=== PATIENT | male | born 1995 | race Caucasian/White ===

== ENCOUNTER 2016-09-16 06:19 | Emergency (ER) | payer BC ==
[~2016-09-16] VITALS: Ht 172.7 cm; Wt 58.0 kg
[~2016-09-16 06:19] MED LIST: NO HOME MEDS; ULTRAM50 M1 PO
[2016-09-16 06:30] VITALS: BP 128/88
== END 2016-09-16 06:57 | disposition home or self-care (01) | DRG 156 ==
LOC: ED 06:19
DX: H61.22 Impacted cerumen, left ear (principal); H92.02 Otalgia, left ear

== ENCOUNTER 2020-10-23 10:37 | Emergency (ER) | payer MEDICAID ==
[~2020-10-23] VITALS: Ht 172.7 cm; Wt 68.0 kg
[2020-10-23 13:12] VITALS: BP 110/70
== END 2020-10-23 13:15 | disposition home or self-care (01) | DRG 951 ==
LOC: ED 10:37
DX: Z20.822 Contact with and (suspected) exposure to COVID-19 (principal); F17.200 Nicotine dependence, unspecified, uncomplicated

== ENCOUNTER 2022-06-04 13:49 | Emergency (ER) | payer MEDICAID ==
[~2022-06-04] VITALS: Ht 172.7 cm; Wt 68.0 kg
[2022-06-04 15:05] LABS: URINE BILIRUBIN - DIPSTICK NEGATIVE (NEGATIVE); URINE BLOOD DIPSTICK NEGATIVE (NEGATIVE); URINE COLOR YELLOW; URINE GLUCOSE - DIPSTICK NEGATIVE (NEGATIVE); URINE KETONE NEGATIVE (NEGATIVE); URINE LEUK ESTERASE NEGATIVE (NEGATIVE); URINE PH 6.5 (4.5-8.0); URINE PROTEIN - DIPSTICK NEGATIVE (NEG-TRACE); URINE UROBILINOGEN - DIPSTICK 0.2 E.U./dL (0.2)
[2022-06-04 15:07] LABS: URINE NITRITE - DIPSTICK NEGATIVE (Negative)
[2022-06-04 15:14] LABS: BASO% 0.2 % (0-3); EOS% 1.5 % (0-8); HEMATOCRIT 46.2 % (39.0-50.0); IMMATURE GRANULOCYTES 0.3 % (0.0-5.0); LYMPH% 33.6 % (15-41); MEAN CELL VOLUME 88.5 fL CALC (80.0-100.0); MEAN CORPUSCULAR HGB 28.7 pG CALC (26.0-32.0); MEAN CORPUSCULAR HGB CONC 32.5 g/dL CAL (32.0-36.0); MONO% 6.1 % (2-13); NEUT# 3.51 thou/uL (1.82-7.42); NEUT% 58.3 % (42-76); RED BLOOD COUNT 5.22 mill/uL (4.70-6.10); RED CELL DISTRI WIDTH 12.7 % (11.5-15.5)
[2022-06-04 15:39] LABS: ALBUMIN 4.7 g/dL (3.2-5.0); ALKALINE PHOSPHATASE 84 u/l (38-126); ANION GAP 15 (6-22 (CALC)); BUN 14 mg/dL (9-20); BUN/CREATININE RATIO 17 (12-20 (CALC)); CARBON DIOXIDE 22 mmol/l (22-30); CHLORIDE 108 mmol/l (95-108); CREATININE 0.9 mg/dL (0.7-1.3); GFR FOR AFR.AMER. > 60 ML/MIN (>=60 (CALC)); GFR OTHER RACES > 60 ML/MIN (>=60 (CALC)); LIPASE 107 u/l (23-300); POTASSIUM 3.7 mmol/l (3.5-5.1); SODIUM 141 mmol/l (137-146); TOTAL PROTEIN 8.1 g/dL (6.3-8.2)
[2022-06-04 15:40] LABS: BILIRUBIN, TOTAL 0.5 mg/dL (0.2-1.3); SGOT/AST 52 u/l (17-59)
[2022-06-04] MEDS ORDERED: OMEPRAZOLE DR40 MG PO (15:48)
[2022-06-04 16:20] VITALS: BP 136/80
== END 2022-06-04 16:28 | disposition home or self-care (01) ==
LOC: ED 13:49
PROVIDERS: Family Medicine
DX: R10.12 Left upper quadrant pain (principal); R10.13 Epigastric pain; F17.290 Nicotine dependence, other tobacco product, uncomplicated

== ENCOUNTER 2024-03-10 05:01 | Emergency (ER) | payer SELFPAY ==
[~2024-03-10] VITALS: Ht 172.7 cm; Wt 68.0 kg
[~2024-03-10 05:01] MED LIST changes: +OMEPRAZOLE DR40 MG PO
[2024-03-10] MEDS ORDERED: IBUPROFEN 600 MG/TAB PO ONE (05:45)
[2024-03-10] MEDS ORDERED: ACETAMINOPHEN 500 MG TAB PO ONE (05:45)
[2024-03-10] MEDS ORDERED: VOLTAREN - GENE75 MG PO (06:49)
[2024-03-10] MEDS ORDERED: MIRALAX17 GM PO (06:49)
[2024-03-10] MEDS ORDERED: Peg 3350-POTASSIUM CHLORIDE-So 4,000 ML BTL PO ONE (06:50)
[2024-03-10 07:10] VITALS: BP 109/69
[2024-03-10 07:15] VITALS: BP 112/65
[2024-03-10 07:19] VITALS: BP 112/65
== END 2024-03-10 07:21 | disposition home or self-care (01) | DRG 392 ==
LOC: ED 05:01
DX: K59.00 Constipation, unspecified (principal); S39.012A Strain of muscle, fascia and tendon of lower back, initial encounter; X58.XXXA Exposure to other specified factors, initial encounter